=== PATIENT | male | born 1955 | race Caucasian/White ===

== ENCOUNTER 2023-11-17 14:01 | Observation (INO) | payer MEDICARE ==
--- NOTE | 2023-11-17 14:39 | ED ---
Recheck HPI - General Source: patient, RN notes reviewed Mode of arrival: ambulatory Limitations: no limitations <Fariba Hernandez - Last Filed: 11/17/23 14:38> <Jg Quinones - Last Filed: 11/17/23 21:00> - General Chief Complaint: Recheck/Abnormal Lab/Rx Stated Complaint: Abn labs Time Seen by Provider: 11/17/23 14:38 - History of Present Illness Initial Comments: Patient is a 68-year-old male presented to ER with chief complaint of abnormal labs. Patient was sent here by PCP for further evaluation. Patient reports he underwent CABG about a year ago. Patient is endorsing some abdominal pain. Patient denies any fevers, chills, night sweats. Patient has been losing weight but is also on Ozempic. (Fariba Hernandez) This is a 68-year-old male who presents to the emergency department. Patient is a diabetic and had a recent bypass surgery on 30 September. Patient states that he went back on his Ozempic and his liver enzymes were elevated with the last 2 blood draws so his physician wanted to come to the emergency department. Patient denies any shortness of breath or difficulty breathing. Patient denies any chest pain. Patient has any back pain. Patient denies abdominal pain (Jg Quinones) - Related Data Home Medications Medication Instructions Recorded Confirmed Ascorbic Acid [Vitamin C] 1,000 mg PO DAILY 11/17/23 11/17/23 Atorvastatin Calcium [Lipitor] 40 mg PO HS 11/17/23 11/17/23 Cholecalciferol [Vitamin D3 (25 50 mcg PO DAILY 11/17/23 11/17/23 Mcg = 1000 Iu)] Citalopram Hydrobromide [CeleXA] 10 mg PO DAILY 11/17/23 11/17/23 Clopidogrel [Plavix] 75 mg PO DAILY 11/17/23 11/17/23 Docusate [Colace] 100 mg PO DAILY 11/17/23 11/17/23 Fenofibrate Nanocrystallized 145 mg PO HS 11/17/23 11/17/23 [Fenofibrate] Insulin Aspart [NovoLOG Flexpen] See Protocol SQ AC-TID 11/17/23 11/17/23 Insulin Glargine,Hum.rec.anlog 30 units SQ BID 11/17/23 11/17/23 [Lantus Solostar Pen] Multivitamins, Thera [Multivitamin 1 tab PO DAILY 11/17/23 11/17/23 (formulary)] [place]-3/Dha/Epa/Fish Oil [Fish Oil 1 cap PO DAILY 11/17/23 11/17/23 1,000 mg Softgel] Omeprazole [PriLOSEC] 20 mg PO DAILY PRN 11/17/23 11/17/23 Semaglutide [Ozempic] 0.5 mg SQ SA 11/17/23 11/17/23 Sennosides-Docusate Sodium 1 tab PO DAILY 11/17/23 11/17/23 [Senokot-S] Zolpidem [Ambien] 10 mg PO HS PRN 11/17/23 11/17/23 lisinopriL [Zestril] 20 mg PO HS 11/17/23 11/17/23 metFORMIN HCL [Glucophage] 500 mg PO BID 11/17/23 11/17/23 tadalafiL 10 mg PO DAILY PRN 11/17/23 11/17/23 traMADol HCL 50 mg PO Q6H PRN 11/17/23 11/17/23 Allergies Allergy/AdvReac Type Severity Reaction Status Date / Time No Known Allergies Allergy Verified 11/17/23 17:54 Review of Systems ROS Other: All systems not noted in ROS Statement are negative. <Fariba Hernandez - Last Filed: 11/17/23 14:38> ROS Other: All systems not noted in ROS Statement are negative. <Jg Quinones - Last Filed: 11/17/23 21:00> ROS Statement: Those systems with pertinent positive or pertinent negative responses have been documented in the HPI. Past Medical History Past Medical History: Diabetes Mellitus, Hyperlipidemia, Hypertension, Thyroid Disorder Past Surgical History: Coronary Bypass/CABG <Fariba Hernandez - Last Filed: 11/17/23 14:38> General Exam Limitations: no limitations <Fariba Hernandez - Last Filed: 11/17/23 14:38> <Jg Quinones - Last Filed: 11/17/23 21:00> - General Exam Comments Initial Comments: Visual Physical Exam Vital signs reviewed General: Well-appearing, nontoxic, no acute distress. Head: Normocephalic, atraumatic Eyes: PERRLA, EOMI ENT: Airway patent Chest: Nonlabored breathing Skin: No visual rash, jaundice Neuro: Alert and oriented 3 Musculoskeletal: No gross abnormalities (Fariba Hernandez) GENERAL: Patient is well-developed and well-nourished. Patient is nontoxic and well- hydrated and is in no acute distress. ENT: Neck is soft and supple. No significant lymphadenopathy is noted. Oropharynx is clear. Moist mucous membranes. Neck has full range of motion without eliciting any pain. EYES: The sclera were anicteric and conjunctiva were pink and moist. Extraocular movements were intact and pupils were equal round and reactive to light. Eyelids were unremarkable. PULMONARY: Unlabored respirations. Good breath sounds bilaterally. Patient has some diminished breath sounds at right base CARDIOVASCULAR: There is a regular rate and rhythm without any murmurs gallops or rubs. ABDOMEN: Soft and nontender with normal bowel sounds. SKIN: Skin is clear with no lesions or rashes and otherwise unremarkable. NEUROLOGIC: Patient is alert and oriented x3. Cranial nerves II through XII are grossly intact. Motor and sensory are also intact. Normal speech, volume and content. Symmetrical smile. MUSCULOSKELETAL: Normal extremities with adequate strength and full range of motion. LYMPHATICS: No significant lymphadenopathy is noted PSYCHIATRIC: Normal psychiatric evaluation. (Jg Quinones) Course Vital Signs 11/17/23 11/17/23 11/17/23 14:30 15:20 16:00 Temperature 97 F L Pulse Rate 45 L 85 77 Respiratory 16 16 16 Rate Blood Pressure 115/64 137/59 111/65 O2 Sat by Pulse 99 98 96 Oximetry 11/17/23 11/17/23 11/17/23 16:30 17:00 17:30 Temperature Pulse Rate 78 80 82 Respiratory 16 18 16 Rate Blood Pressure 153/78 128/78 135/60 O2 Sat by Pulse 95 95 96 Oximetry 11/17/23 11/17/23 11/17/23 18:00 18:30 19:00 Temperature Pulse Rate 77 78 80 Respiratory 16 17 16 Rate Blood Pressure 143/72 143/74 138/79 O2 Sat by Pulse 97 98 97 Oximetry Medical Decision Making <Fariba Hernandez - Last Filed: 11/17/23 14:38> - Lab Data Result diagrams: 11/17/23 15:32 11/17/23 15:32 <Jg Quinones - Last Filed: 11/17/23 21:00> - Medical Decision Making I performed the quick note portion of the exam. Electronically signed by Fariba Hernandez PA-C (Fariba Hernandez) EKG is interpreted by myself. EKG shows a bigeminy pattern at a rate of 77 bpm [place] is 154 QRS 106 QT interval 277 QTc is 309. Patient is EKG shows no ST segment elevation. Was pt. sent in by a medical professional or institution ([facility]cker, ELECT[employer]IC WARFARE OFFICER, urgent care, hospital, or [place] health care facility...) When possible be specific @ -Patient was sent in by his primary medical care doctor Did you speak to anyone other than the patient for history (EMS, parent, family, police, friend...)? What history was obtained from this source @ -No Did you review nursing and triage notes (agree or disagree)? Why? @ -I reviewed and agree with nursing and triage notes Were old charts reviewed (outside hosp., previous admission, EMS record, old EKG, old radiological studies, urgent care reports/EKG's, [place] health care facility records)? Report findings @ -I reviewed prior charts and prior lab work on this patient Differential Diagnosis (chest pain, altered mental status, abdominal pain women, abdominal pain men, vaginal bleeding, weakness, fever, dyspnea, syncope, headache, dizziness, GI bleed, back pain, seizure, CVA, palpatations, mental health, musculoskeletal)? @ -Differential Abdominal Pain Men: Appendicitis, cholecystitis, diverticulosis, ischemic bowel, pancreatitis, hepatitis, UTI, gastroenteritis, AAA, incarcerated hernia, bowel obstruction, constipation, inflammatory bowel, hepatitis, peptic ulcer disease, splenic infarction, perforated viscus, testicular torsion, this is not meant to be an all-inclusive list EKG interpreted by me (3pts min.). @ -As above X-rays interpreted by me (1pt min.). @ -None done CT interpreted by me (1pt min.). @ -CAT scan showed some inflammation around the gallbladder some gallbladder wal l thickening and some thickening around the pancreatic head U/S interpreted by me (1pt. min.). @ -None done What testing was considered but not performed or refused? (CT, X-rays, U/S, labs)? Why? @ -None What meds were considered but not given or refused? Why? @ -None Did you discuss the management of the patient with other professionals (professionals i.e. , PA, ELECTRONIC WARFARE OFFICER, lab, RT, psych nurse, case management social worker, trauma program manager, teacher, sergeant of officers, correctional case manager)? Give summary @ -I spoke with [facility] hospitalist and they agreed to admit the patient. Was smoking cessation discussed for >3mins.? @ -No Was critical care preformed (if so, how long)? @ -No Were there social determinants of health that impacted care today? How? (Homelessness, low income, unemployed, alcoholism, drug addiction, tra nsportation, low edu. Level, literacy, decrease access to med. care, senior care, rehab)? @ -No Was there de-escalation of care discussed even if they declined (Discuss DNR or withdrawal of care, Hospice)? DNR status @ -No What co-morbidities impacted this encounter? (DM, HTN, Smoking, COPD, CAD, Cancer, CVA, ARF, Chemo, Hep., AIDS, mental health diagnosis, sleep apnea, morbid obesity)? @ -None Was patient admitted / discharged? Hospital course, mention meds given and route, prescriptions, significant lab abnormalities, going to OR and other pertinent info. @ -Patient had a CAT scan that showed inflammation of the gallbladder and around pancreatic head patient's pancreatic and liver enzymes were both elevated. Patient did have gallstones in the gallbladder. Patient's presentation was somewhat consistent with gallstone pancreatitis patient will be placed on antibiotics and admitted the fiberglass autobody repairer will be consulted as well a surgeon. Undiagnosed new problem with uncertain prognosis? @ -No Drug Therapy requiring intensive monitoring for toxicity (Heparin, Nitro, Insulin, Cardizem)? @ -No Were any procedures done? @ -No Diagnosis/symptom? @ -Gallstone pancreatitis Acute, or Chronic, or Acute on Chronic? @ -Acute Uncomplicated (without systemic symptoms) or Complicated (systemic symptoms)? @ -Complicated Side effects of treatment? @ -No Exacerbation, Progression, or Severe Exacerbation? @ -No Poses a threat to life or bodily function? How? (Chest pain, [place], [place], pneumonia, PE, COPD, DKA, ARF, appy, cholecystitis, CVA, Diverticulitis, Homicidal, Suicidal, threat to staff... and all critical care pts) @ -Yes this could lead to sepsis and endorgan dysfunction Diagnosis/symptom? @ -Cholecystitis Acute, or Chronic, or Acute on Chronic? @ -Acute Uncomplicated (without systemic symptoms) or Complicated (systemic symptoms)? @ -Complicated Side effects of treatment? @ -None Exacerbation, Progression, or Severe Exacerbation] @ -No Poses a threat to life or bodily function? @ -No (Jg Quinones) - Lab Data Lab Results 11/17/23 11/17/23 11/17/23 Range/Units 15:32 15:32 15:32 WBC 9.5 (3.8-10.6) k/uL RBC 4.51 (4.30-5.90) m/uL Hgb 12.5 L (13.0-17.5) gm/dL Hct 39.4 (39.0-53.0) % MCV 87.4 (80.0-100.0) fL MCH 27.8 (25.0-35.0) pg MCHC 31.8 (31.0-37.0) g/dL RDW 15.6 H (11.5-15.5) % Plt Count 395 (150-450) k/uL MPV 8.2 Hypochromasia Slight Sodium 137 (137-145) mmol/L Potassium 4.9 (3.5-5.1) mmol/L Chloride 105 (98-107) mmol/L Carbon Dioxide 20 L (22-30) mmol/L Anion Gap 12 mmol/L BUN 29 H (9-20) mg/dL Creatinine 0.85 (0.66-1.25) mg/dL Est GFR (CKD-EPI)AfAm >90 (>60 ml/min/1.73 sqM) Est GFR (CKD-EPI)NonAf >90 (>60 ml/min/1.73 sqM) Glucose 121 H (74-99) mg/dL Plasma Lactic Acid [place] 1.4 (0.7-2.0) mmol/L Calcium 9.9 (8.4-10.2) mg/dL Total Bilirubin 1.6 H (0.2-1.3) mg/dL Conjugated Bilirubin 0.0 (0.0-0.3) mg/dL Unconjugated Bilirubin 0.6 (0.0-1.1) mg/dL Delta Bilirubin 1.0 H (0.0-0.2) mg/dL AST 115 H (17-59) U/L ALT 209 H (4-49) U/L Alkaline Phosphatase 387 H (38-126) U/L Troponin I (0.000-0.034) ng/mL Total Protein 7.6 (6.3-8.2) g/dL Albumin 4.0 (3.5-5.0) g/dL Amylase 208 H (30-110) U/L Lipase 2209 H (23-300) U/L Urine Color Urine Appearance (Clear) Urine pH (5.0-8.0) Ur Specific [place] (1.001-1.035) Urine Protein (Negative) Urine Glucose (UA) (Negative) Urine Ketones (Negative) Urine Blood (Negative) Urine Nitrite (Negative) Urine Bilirubin (Negative) Urine Urobilinogen (<2.0) mg/dL Ur Leukocyte Esterase (Negative) 11/17/23 11/17/23 Range/Units 15:32 17:02 WBC (3.8-10.6) k/uL RBC (4.30-5.90) m/uL Hgb (13.0-17.5) gm/dL Hct (39.0-53.0) % MCV (80.0-100.0) fL MCH (25.0-35.0) pg MCHC (31.0-37.0) g/dL RDW (11.5-15.5) % Plt Count (150-450) k/uL MPV Hypochromasia Sodium (137-145) mmol/L Potassium (3.5-5.1) mmol/L Chloride (98-107) mmol/L Carbon Dioxide (22-30) mmol/L Anion Gap mmol/L BUN (9-20) mg/dL Creatinine (0.66-1.25) mg/dL Est GFR (CKD-EPI)AfAm (>60 ml/min/1.73 sqM) Est GFR (CKD-EPI)NonAf (>60 ml/min/1.73 sqM) Glucose (74-99) mg/dL Plasma Lactic Acid [place] (0.7-2.0) mmol/L Calcium (8.4-10.2) mg/dL Total Bilirubin (0.2-1.3) mg/dL Conjugated Bilirubin (0.0-0.3) mg/dL Unconjugated Bilirubin (0.0-1.1) mg/dL Delta Bilirubin (0.0-0.2) mg/dL AST (17-59) U/L ALT (4-49) U/L Alkaline Phosphatase (38-126) U/L Troponin I 0.014 (0.000-0.034) ng/mL Total Protein (6.3-8.2) g/dL Albumin (3.5-5.0) g/dL Amylase (30-110) U/L Lipase (23-300) U/L Urine Color Yellow Urine Appearance Clear (Clear) Urine pH 5.0 (5.0-8.0) Ur Specific [place] 1.021 (1.001-1.035) Urine Protein Negative (Negative) Urine Glucose (UA) Negative (Negative) Urine Ketones Negative (Negative) Urine Blood Negative (Negative) Urine Nitrite Negative (Negative) Urine Bilirubin Negative (Negative) Urine Urobilinogen <2.0 (<2.0) mg/dL Ur Leukocyte Esterase Negative (Negative) Disposition <Fariba Hernandez - Last Filed: 11/17/23 14:38> Time of Disposition: 20:59 <Jg Quinones - Last Filed: 11/17/23 21:00> Clinical Impression: Gallstone pancreatitis, Cholecystitis Disposition: ADMITTED IP TO THIS HOSP Referrals: Ward Romo DO [Primary Care Provider] - 1-2 days
[2023-11-17 15:48] LABS: HCT 39.4 % (39.0-53.0); HGB 12.5 gm/dL (13.0-17.5); Hypochromasia Slight; MCH 27.8 pg (25.0-35.0); MCHC 31.8 g/dL (31.0-37.0); MCV 87.4 fL (80.0-100.0); Mean Platelet Volume 8.2; Platelet Count 395 k/uL (150-450); RBC 4.51 m/uL (4.30-5.90); RDW 15.6 % (11.5-15.5); WBC 9.5 k/uL (3.8-10.6)
[2023-11-17 15:57] LABS: African American GFR (CKD) >90 (>60 ml/min/1.73 sqM); Amylase 208 U/L (30-110); Carbon Dioxide 20 mmol/L (22-30); Non-African American GFR(CKD) >90 (>60 ml/min/1.73 sqM); Total Protein 7.6 g/dL (6.3-8.2)
[2023-11-17 16:23] LABS: ALT 209 U/L (4-49); AST 115 U/L (17-59); Alkaline Phosphatase 387 U/L (38-126); Anion Gap 12 mmol/L; Bilirubin,Unconjugated 0.6 mg/dL (0.0-1.1); Blood Urea Nitrogen 29 mg/dL (9-20); Calcium 9.9 mg/dL (8.4-10.2); Chloride 105 mmol/L (98-107); Glucose 121 mg/dL (74-99); Potassium 4.9 mmol/L (3.5-5.1); Sodium 137 mmol/L (137-145); Total Bilirubin 1.6 mg/dL (0.2-1.3)
[2023-11-17 16:49] LABS: Lipase 2209 U/L (23-300)
[2023-11-17 18:03] LABS: Appearance,Urine Clear (Clear); Bilirubin,Urine Negative (Negative); Blood,Urine Negative (Negative); Color,Urine Yellow; Glucose,Urine (UA) Negative (Negative); Ketones,Urine Negative (Negative); Leukocyte Esterase,Urine Negative (Negative); Nitrite,Urine Negative (Negative); Protein,Urine Negative (Negative); Specific Gravity,Urine 1.021 (1.001-1.035); Urobilinogen,Urine <2.0 mg/dL (<2.0)
--- NOTE | 2023-11-17 18:52 | CT ---
EXAMINATION TYPE: CT abdomen pelvis w con CT DLP: 1106.9 mGycm, Automated exposure control for dose reduction was used. DATE OF EXAM: 11/17/2023 6:19 PM COMPARISON: None CLINICAL INDICATION:Male, 68 years old with history of jaundice; Jaundice, abnormal labs TECHNIQUE: Axial CT abdomen pelvis w con;Sagittal and coronal reformats were created on a separate w orkstation. Contrast used:100 mL of Isovue 300 with IV Contrast, (none if empty) Oral contrast used: without Oral Contrast (none if empty) FINDINGS: LOWER CHEST: Small left pleural effusion. Streaky atelectasis lung bases. Elevated right diaphragm. S ternotomy wires are present. Mild coronary artery atherosclerosis. Aortic valve leaflet calcification s. ABDOMEN LIVER: Unremarkable GALLBLADDER AND BILE DUCTS: Gallbladder has circumferential wall thickening up to 4 4 mm. There is a hepatis possible gallstone in the cystic duct measures series 201 image 29. PANCREAS: Unremarkable. SPLEEN: Unremarkable. ADRENAL GLANDS: Unremarkable. KIDNEYS AND URETERS: Nonobstructing left 3 mm calculus. No right renal calculus. No evidence for obst ructive uropathy. PELVIS BLADDER: Unremarkable REPRODUCTIVE: Unremarkable. ABDOMEN & PELVIS STOMACH AND BOWEL: No evidence of bowel obstruction. Scattered colonic diverticula. The appendix is n ot definitively visualized. PERITONEUM/RETROPERITONEUM: No evidence of pneumoperitoneum or free fluid. Fat stranding changes seri es 201 image 27 that extends away from the pancreatic head. This is immediately adjacent to the duode num. VASCULATURE: No evidence of aortic aneurysm. MUSCULOSKELETAL: No acute osseous abnormalities LYMPH NODES: Prominent lymph node near the hazy fat stranding described above measuring up to 13 mm j ust anterior to the portal vein series 201 image 31. SOFT TISSUE/ABDOMINAL WALL: Postsurgical changes with hernia repair anchors present. Left fat-contain ing inguinal hernia. IMPRESSION: 1. There is some wall thickening of the gallbladder suggested with possible gallstone visualized ser ies 201 image 29. Correlate for signs and symptoms of acute cholecystitis. 2. Ill-defined hazy soft tissue in the tae hepatis with enlarged lymph node anterior to the portal vein. Hazy soft tissue is near the duodenum and pancreatic head, etiology uncertain. Correlation wit h prior imaging at outside institutions would be of benefit if available. Correlate for peptic ulcer disease. Correlate for signs and symptoms of ascending cholangitis. Malignancy not entirely excluded given the lymph node. 3. Elevated right diaphragm with associated atelectasis. 4. Small left pleural effusion. 5. Coronary artery atherosclerosis.
--- NOTE | 2023-11-17 20:54 | US ---
EXAMINATION TYPE: US gallbladder DATE OF EXAM: 11/17/2023 COMPARISON: CT: Today CLINICAL INDICATION: Male, 68 years old with history of Right upper quadrant abdominal pain; Abnormal labs, GB wall thickening on CT Extremely limited due to bowel gas and body habitus. Pt had just eaten about 30 min ago. TECHNIQUE: Multiple sonographic images of the right upper quadrant are obtained. FINDINGS: EXAM MEASUREMENTS: Liver Length: 14.4 cm Gallbladder Wall: 0.72 cm CBD: Not seen Right Kidney: 12.0 x 5.0 x 7.0 cm Pancreas: Obscured by bowel gas Liver: Left lobe obscured by bowel gas, no obvious masses seen in right lobe. Scanned intercostally Gallbladder: Wall thickening as seen on same day CT. Rodriguez measuring up to 5 mm. Gallstone seen on day CT not well appreciated. Evidence for sonographic Mackay's sign: No CBD: Not seen Right Kidney: wnl IMPRESSION: Mild wall thickening of the gallbladder as seen on same day CT correlate for signs of acute cholecyst itis. Consider correlation with HIDA scan.
[2023-11-17] MEDS: SODIUM CHLORIDE 0.9% 1,000 ML IV ONE (22:43)
[2023-11-17] MEDS: PIPERACILLIN-TAZOBACTAM 3.375 GM in SODIUM CHLORIDE 0.9% 100 ML IVPB STA (22:43)
[2023-11-18 05:35] LABS: Glucose,Whole Blood 168 mg/dL (70-110)
[2023-11-18 07:17] LABS: HCT 33.2 % (39.0-53.0); HGB 10.6 gm/dL (13.0-17.5); Hypochromasia Slight; MCV 87.7 fL (80.0-100.0); Mean Platelet Volume 8.2; Platelet Count 325 k/uL (150-450); RBC 3.79 m/uL (4.30-5.90); RDW 15.6 % (11.5-15.5); WBC 6.3 k/uL (3.8-10.6)
[2023-11-18 07:34] LABS: INR 1.1 (<1.2); Prothrombin Time 11.6 sec (10.0-12.5)
[2023-11-18 07:37] LABS: ALT 142 U/L (4-49); AST 79 U/L (17-59); African American GFR (CKD) >90 (>60 ml/min/1.73 sqM); Albumin 3.1 g/dL (3.5-5.0); Alkaline Phosphatase 277 U/L (38-126); Anion Gap 7 mmol/L; Blood Urea Nitrogen 22 mg/dL (9-20); Calcium 8.9 mg/dL (8.4-10.2); Carbon Dioxide 22 mmol/L (22-30); Chloride 108 mmol/L (98-107); Globulin 3.1 g/dL; Glucose 139 mg/dL (74-99); Non-African American GFR(CKD) >90 (>60 ml/min/1.73 sqM); Potassium 4.3 mmol/L (3.5-5.1); Sodium 137 mmol/L (137-145); Total Bilirubin 1.1 mg/dL (0.2-1.3); Total Protein 6.2 g/dL (6.3-8.2)
[2023-11-18] MEDS: PIPERACILLIN-TAZOBACTAM 3.375 GM in SODIUM CHLORIDE 0.9% 100 ML IVPB SCH (09:07)
[2023-11-18 11:46] LABS: Glucose,Whole Blood 153 mg/dL (70-110)
--- NOTE | 2023-11-18 13:02 | P.CONS ---
History of Present Illness - Reason for Consult Consult date: 11/18/23 Gallstone pancreatitis, cholecystitis Requesting physician: Jg Quinones - Chief Complaint Abnormal labs - History of Present Illness This pleasant 68-year-old male with a history of coronary artery disease status post CABG 09/30/2023 who was sent into the emergency department for further evaluation of elevated LFTs in the outpatient setting. Patient states he has b een having elevated LFTs that his PCP has been following. He has been having back pain for quite some time states basically since his surgery. He denies any abdominal pain, no nausea or vomiting. He is diabetic as well and was started on Ozempic a few months back and then he went back on it after his CABG. Following his CABG his last 2 blood draws at his PCP has had elevated LFTs. He also reports a 30 pound weight loss over the last few months. He does report taking Lipitor but he has been on that for years. He underwent a CT of the abdomen pelvis as well as gallbladder ultrasound. Gastroenterology was consulted for gallstone pancreatitis. He was noted to have elevated LFTs as well as amylase and lipase on admission. Today's labs WBC 6.3 hemoglobin 10.6 hematocrit 33 platelet count 325,000 sodium 137 potassium 4.3 BUN 22 creatinine 0.8 total bilirubin 1.1 AST 79 ALT 142 alkaline phosphatase 277 lipase 2174 Admitting labs WBC 9.5 hemoglobin 12.5 hematocrit 39 platelet count 395,000 sodium 137 potassium 4.9 BUN 29 creatinine 0.8 total bilirubin 1.6 AST 115 ALT 209 alkaline phosphatase 387 amylase 208 lipase 2209 Review of Systems REVIEW OF SYSTEMS: CARDIOPULMONARY: No chest pain or shortness of breath. Gastrointestinal: Burning sensation patient denies any abdominal pain. What he say No nausea or vomiting. No hematemesis, coffee-ground emesis. No rectal bleeding, or melena. GENITOURINARY: No dysuria or hematuria. MUSCULOSKELETAL: Reports normal range of motion. He reports back pain since his surgery. SKIN: No rashes. No jaundice. ENDOCRINE: No chills, fevers. No polydipsia or polyuria. PSYCHIATRIC: Unremarkable. NEUROLOGY: No change in mental status. Denies dizziness, headache. ENT: Vision unremarkable. CONSTITUTIONAL: Reports 30 pound weight loss over the last 3 to 4 months. No fever, chills, night sweats. Past Medical History Past Medical History: Diabetes Mellitus, Hyperlipidemia, Hypertension, Thyroid Disorder History of Any Multi-Drug Resistant Organisms: None Reported Past Surgical History: Coronary Bypass/CABG Smoking Status: Never smoker Medications and Allergies Home Medications Medication Instructions Recorded Confirmed Type Ascorbic Acid [Vitamin C] 1,000 mg PO DAILY 11/17/23 11/17/23 History Atorvastatin Calcium [Lipitor] 40 mg PO HS 11/17/23 11/17/23 History Cholecalciferol [Vitamin D3 (25 50 mcg PO DAILY 11/17/23 11/17/23 History Mcg = 1000 Iu)] Citalopram Hydrobromide [CeleXA] 10 mg PO DAILY 11/17/23 11/17/23 History Clopidogrel [Plavix] 75 mg PO DAILY 11/17/23 11/17/23 History Docusate [Colace] 100 mg PO DAILY 11/17/23 11/17/23 History Fenofibrate Nanocrystallized 145 mg PO HS 11/17/23 11/17/23 History [Fenofibrate] Insulin Aspart [NovoLOG Flexpen] See Protocol SQ AC-TID 11/17/23 11/17/23 Hist ory Insulin Glargine,Hum.rec.anlog 30 units SQ BID 11/17/23 11/17/23 History [Lantus Solostar Pen] Multivitamins, Thera [Multivitamin 1 tab PO DAILY 11/17/23 11/17/23 History (formulary)] [place]-3/Dha/Epa/Fish Oil [Fish Oil 1 cap PO DAILY 11/17/23 11/17/23 History 1,000 mg Softgel] Omeprazole [PriLOSEC] 20 mg PO DAILY PRN 11/17/23 11/17/23 History Semaglutide [Ozempic] 0.5 mg SQ SA 11/17/23 11/17/23 History Sennosides-Docusate Sodium 1 tab PO DAILY 11/17/23 11/17/23 History [Senokot-S] Zolpidem [Ambien] 10 mg PO HS PRN 11/17/23 11/17/23 History lisinopriL [Zestril] 20 mg PO HS 11/17/23 11/17/23 History metFORMIN HCL [Glucophage] 500 mg PO BID 11/17/23 11/17/23 History tadalafiL 10 mg PO DAILY PRN 11/17/23 11/17/23 History traMADol HCL 50 mg PO Q6H PRN 11/17/23 11/17/23 History Allergies Allergy/AdvReac Type Severity Reaction Status Date / Time No Known Allergies Allergy Verified 11/17/23 17:54 Physical Exam Vitals: Vital Signs Temp Pulse Pulse Resp BP BP Pulse Ox 11/18/23 00:50 98.6 F 60 18 101/58 93 L 11/17/23 22:00 84 16 124/79 90 L 11/17/23 21:30 83 18 134/100 93 L 11/17/23 21:00 20 136/72 11/17/23 20:30 86 18 133/55 94 L 11/17/23 20:00 86 138/101 95 11/17/23 19:30 91 131/96 11/17/23 19:00 80 16 138/79 97 11/17/23 18:30 78 17 143/74 98 11/17/23 18:00 77 16 143/72 97 11/17/23 17:30 82 16 135/60 96 11/17/23 17:00 80 18 128/78 95 11/17/23 16:30 78 16 153/78 95 11/17/23 16:00 77 16 111/65 96 11/17/23 15:20 85 16 137/59 98 11/17/23 14:30 97 F L 45 L 16 115/64 99 Intake and Output 11/17/23 11/18/23 11/18/23 22:59 06:59 14:59 Other: # Voids 2 Weight 80.739 kg General appearance: The patient is alert, oriented, appears in no acute distr ess. HET: Head is normocephalic and atraumatic. Conjunctiva pink. Sclera anicteric. Neck: Supple without lymphadenopathy. Trachea midline. Heart: Regular. Lungs: Equal expansion, normal respiratory effort. Abdomen: Soft, nontender, nondistended with bowel sounds. No guarding or rigidity. Skin: No rashes. No jaundice. Extremities: Normal skin color and turgor. No pedal edema. Neurological: No focal deficits. Alert and oriented x3. Results CBC & Chem 7: 11/18/23 06:40 11/18/23 06:40 Labs: Abnormal Lab Results - Last 24 Hours (Table) 11/17/23 11/17/23 11/18/23 Range/Units 15:32 15:32 05:34 Hgb 12.5 L (13.0-17.5) gm/dL RDW 15.6 H (11.5-15.5) % Carbon Dioxide 20 L (22-30) mmol/L BUN 29 H (9-20) mg/dL Glucose 121 H (74-99) mg/dL POC Glucose (mg/dL) 168 H (70-110) mg/dL Total Bilirubin 1.6 H (0.2-1.3) mg/dL Delta Bilirubin 1.0 H (0.0-0.2) mg/dL AST 115 H (17-59) U/L ALT 209 H (4-49) U/L Alkaline Phosphatase 387 H (38-126) U/L Amylase 208 H (30-110) U/L Lipase 2209 H (23-300) U/L Comments: CT abdomen pelvis with contrast reports some wall thickening of the gallbladder suggesting possible gallstone visualized correlate for signs and symptoms of acute cholecystitis. Ill-defined hazy soft tissue in the tae hepatis with enlarged lymph node anterior to the portal vein. Hazy soft tissue near the duodenum and pancreatic head, etiology uncertain. Correlation with prior imaging at outside institutions would be beneficial if available. Correlate for peptic ulcer disease. Correlate for signs and symptoms of ascending cholangitis. Malignancy not entirely excluded given the lymph node. Elevated right diaphragm with associated atelectasis. Small left pleural effusion. Coronary artery arthrosclerosis. Gallbladder ultrasound reports mild wall thickening of the gallbladder as seen on same-day CT correlate for signs of acute cholecystitis. Consider correlation with HIDA scan. CBD not well-seen. Assessment and Plan (1) Pancreatitis Narrative/Plan: 68-year-old male presenting to the emergency department directed by his PCP for elevated liver enzymes. This in a patient who underwent recent CABG on 09/30/2023 hands reported back pain since surgery without any abdominal pain. He states that it is a dull achy discomfort. He is also diabetic and was started on Ozempic this year which was restarted after his CABG which then was noted to have elevated liver enzymes over his last 2 visits with his PCP. He also reports a 30 pound weight loss over the last 3 to 4 months. Denies any previous history of gallbladder problems and no pancreatitis in the past. Possible gallstones seen in the cystic duct but no common bile duct dilation. No other noted gallstones. Unclear etiology may be medication induced may be biliary obstruction however would like to further investigate with MRI of the pancreas with MRCP due to significant weight loss as well. Current Visit: Yes Status: Acute Code(s): K85.90 - ACUTE PANCREATITIS WITHOUT NECROSIS OR INFECTION, UNSP SNOMED Code(s): 13726453 (2) Cholecystitis Current Visit: Yes Status: Acute Code(s): K81.9 - CHOLECYSTITIS, UNSPECIFIED SNOMED Code(s): 33954586 Plan: 1. Continue symptomatic and supportive care 2. Keep n.p.o. for now may have clear liquid diet following MRI 3. MRI pancreas with MRCP ordered 4. Hold Ozempic 5. Avoid hepatotoxic medications 6. Pain medication as needed 7. Antiemetics as needed 8. Agree with IV Zosyn 9. Await pancreas MRI/MRCP results. Patient may need to transfer to tertiary center for higher level of care if there is biliary obstruction 10. Continue with recommendations from general surgery Thank you for allowing us to participate in the care of the patient, the GI service will sign off, gastroenterology will not be available at the hospital this weekend and through next week. If further evaluation by gastroenterology is required the patient will need transfer as per the primary team's discretion. Dr. Ronna Billingsley I agree with the dictator's note, documented as a scribe by Nga Bejarano.
[2023-11-18 13:40] VITALS: BMI 24.8
--- NOTE | 2023-11-18 14:01 | P.GSCN ---
History of Present Illness Consult date: 11/18/23 History of present illness: CHIEF COMPLAINT: Abnormal outpatient labs HISTORY OF PRESENT ILLNESS: This is a 68-year-old male who presented to the ER per his PCPs request due to elevated liver enzymes in the outpatient setting. Patient reports that he has had a 30 pound weight loss in the last 3 to 4 months. He has been on Ozempic in the outpatient setting for about 3 to 4 weeks. And then he did have CABG on 09/30/2023. He is just recently restarted the Ozempic. Patient diet denies any abdominal pain. But he did have an episode of vomiting after eating a big Mac on Tuesday. He does report some discomfort in the right upper quadrant flank area. His liver enzymes are elevated lipase level elevated. CT scan abdomen pelvis shows some wall thickening of the gallbladder suggestive of possible gallstone. Also ill- defined hazy soft tissue in the tae hepatis with enlarged lymph node anterior to the portal vein. Hazy soft tissue is near the duodenum and pancreatic head. Patient has been seen by GI service they have ordered an MRI of the pancreas and MRCP. PAST MEDICAL HISTORY: See below PAST SURGICAL HISTORY: See below MEDICATIONS: See below ALLERGIES: See below SOCIAL HISTORY: No illicit drug use. Denies alcohol use REVIEW OF SYSTEMS: CONSTITUTIONAL: Denies fever or chills. HEENT: Denies blurred vision, vision changes, or eye pain. Denies hemoptysis CARDIOVASCULAR: Denies chest pain or pressure. RESPIRATORY: No shortness of breath. GASTROINTESTINAL: See HPI for pertinent findings HEMATOLOGIC: Denies bleeding disorders. GENITOURINARY: Denies any blood in urine or increased urinary frequency. SKIN: Denies pruitis. Denies rash. PHYSICAL EXAM: VITAL SIGNS: Reviewed GENERAL: Well-developed in no acute distress. HEENT: No sclera icterus. Extraocular movements grossly intact. Moist buccal mucosa. Head is atraumatic, normocephalic. No nasal drainage. ABDOMEN: Soft. Nondistended. Mild discomfort with palpation right upper quadrant NEUROLOGIC: Alert and oriented. Cranial nerves II through XII grossly intact. LABORATORY DATA: WBC 6.3 Hgb 10.6 platelets 325 Sodium 137 potassium 4.3 creatinine 0.80 Total bilirubin 1.6 down to 1.1 AST 115 down to 79 ALT 209 down to 142 alk phos 387 down to 277 Lipase 2209 down to 2174 Urinalysis negative IMAGING: CT scan abdomen pelvis some wall thickening of the gallbladder suggested with possible gallstone. Ill-defined hazy soft tissue in the tae hepatis with enlarged lymph node anterior to the portal vein. Hazy soft tissue is near the duodenum and pancreatic head. Correlation with prior imaging. Correlate for peptic ulcer disease. Correlate for signs symptoms cholangitis. Malignancy not entirely excluded. Elevated right diaphragm with associated atelectasis. Small left pleural effusion. Coronary artery atherosclerosis. Gallbladder ultrasound mild wall thickening of the gallbladder ASSESSMENT: 1. Gallstone pancreatitis 2. Cholecystitis 3. Possible choledocholithiasis PLAN: -Advance diet to clear liquids. MRCP cannot be completed until tomorrow -N.p.o. after midnight for MRCP -Continue antibiotics -Continue IV fluids -Continue supportive care -Hold Plavix for now -Further recommendations forthcoming per surgeon Physician Wound/Ostomy Nurse note has been reviewed by physician. Signing provider agrees with the documented findings, assessment, and plan of care. I have personally seen and examined the patient, reviewed the SECURITY SYSTEMS TECHNICIAN /PAs history, exam and MDM and agree with the assessment and plan as written. Based on total visit time, I have performed more than 50% of the visit. As above: Patient appears quite comfortable. Not having significant pain. Diagnostic studies discussed with patient and family. Certainly concerning for possible neoplastic process. Await MRCP. Past Medical History Past Medical History: Diabetes Mellitus, Hyperlipidemia, Hypertension, Thyroid Disorder History of Any Multi-Drug Resistant Organisms: None Reported Past Surgical History: Coronary Bypass/CABG Smoking Status: Never smoker Medications and Allergies Home Medications Medication Instructions Recorded Confirmed Type Ascorbic Acid [Vitamin C] 1,000 mg PO DAILY 11/17/23 11/17/23 History Atorvastatin Calcium [Lipitor] 40 mg PO HS 11/17/23 11/17/23 History Cholecalciferol [Vitamin D3 (25 50 mcg PO DAILY 11/17/23 11/17/23 History Mcg = 1000 Iu)] Citalopram Hydrobromide [CeleXA] 10 mg PO DAILY 11/17/23 11/17/23 History Clopidogrel [Plavix] 75 mg PO DAILY 11/17/23 11/17/23 History Docusate [Colace] 100 mg PO DAILY 11/17/23 11/17/23 History Fenofibrate Nanocrystallized 145 mg PO HS 11/17/23 11/17/23 History [Fenofibrate] Insulin Aspart [NovoLOG Flexpen] See Protocol SQ AC-TID 11/17/23 11/17/23 History Insulin Glargine,Hum.rec.anlog 30 units SQ BID 11/17/23 11/17/23 History [Lantus Solostar Pen] Multivitamins, Thera [Multivitamin 1 tab PO DAILY 11/17/23 11/17/23 History (formulary)] [place]-3/Dha/Epa/Fish Oil [Fish Oil 1 cap PO DAILY 11/17/23 11/17/23 History 1,000 mg Softgel] Omeprazole [PriLOSEC] 20 mg PO DAILY PRN 11/17/23 11/17/23 History Semaglutide [Ozempic] 0.5 mg SQ SA 11/17/23 11/17/23 History Sennosides-Docusate Sodium 1 tab PO DAILY 11/17/23 11/17/23 History [Senokot-S] Zolpidem [Ambien] 10 mg PO HS PRN 11/17/23 11/17/23 History lisinopriL [Zestril] 20 mg PO HS 11/17/23 11/17/23 History metFORMIN HCL [Glucophage] 500 mg PO BID 11/17/23 11/17/23 History tadalafiL 10 mg PO DAILY PRN 11/17/23 11/17/23 History traMADol HCL 50 mg PO Q6H PRN 11/17/23 11/17/23 History Allergies Allergy/AdvReac Type Severity Reaction Status Date / Time No Known Allergies Allergy Verified 11/17/23 17:54 Surgical - Exam Vital Signs Temp Pulse Resp BP Pulse Ox 97 F L 45 L 16 115/64 99 11/17/23 14:30 11/17/23 14:30 11/17/23 14:30 11/17/23 14:30 11/17/23 14:30 Results - Labs 11/18/23 06:40 11/18/23 06:40 Abnormal Lab Results - Last 24 Hours (Table) 11/17/23 11/17/23 11/18/23 Range/Units 15:32 15:32 05:34 RBC (4.30-5.90) m/uL Hgb 12.5 L (13.0-17.5) gm/dL Hct (39.0-53.0) % RDW 15.6 H (11.5-15.5) % Chloride (98-107) mmol/L Carbon Dioxide 20 L (22-30) mmol/L BUN 29 H (9-20) mg/dL Glucose 121 H (74-99) mg/dL POC Glucose (mg/dL) 168 H (70-110) mg/dL Total Bilirubin 1.6 H (0.2-1.3) mg/dL Delta Bilirubin 1.0 H (0.0-0.2) mg/dL AST 115 H (17-59) U/L ALT 209 H (4-49) U/L Alkaline Phosphatase 387 H (38-126) U/L Total Protein (6.3-8.2) g/dL Albumin (3.5-5.0) g/dL Amylase 208 H (30-110) U/L Lipase 2209 H (23-300) U/L 11/18/23 11/18/23 Range/Units 06:40 06:40 RBC 3.79 L (4.30-5.90) m/uL Hgb 10.6 L (13.0-17.5) gm/dL Hct 33.2 L (39.0-53.0) % RDW 15.6 H (11.5-15.5) % Chloride 108 H (98-107) mmol/L Carbon Dioxide (22-30) mmol/L BUN 22 H (9-20) mg/dL Glucose 139 H (74-99) mg/dL POC Glucose (mg/dL) (70-110) mg/dL Total Bilirubin (0.2-1.3) mg/dL Delta Bilirubin (0.0-0.2) mg/dL AST 79 H (17-59) U/L ALT 142 H (4-49) U/L Alkaline Phosphatase 277 H (38-126) U/L Total Protein 6.2 L (6.3-8.2) g/dL Albumin 3.1 L (3.5-5.0) g/dL Amylase (30-110) U/L Lipase (23-300) U/L Diabetes panel 11/17/23 11/18/23 Range/Units 15:32 06:40 Sodium 137 137 (137-145) mmol/L Potassium 4.9 4.3 (3.5-5.1) mmol/L Chloride 105 108 H (98-107) mmol/L Carbon Dioxide 20 L 22 (22-30) mmol/L BUN 29 H 22 H (9-20) mg/dL Creatinine 0.85 0.80 (0.66-1.25) mg/dL Glucose 121 H 139 H (74-99) mg/dL Calcium 9.9 8.9 (8.4-10.2) mg/dL AST 115 H 79 H (17-59) U/L ALT 209 H 142 H (4-49) U/L Alkaline Phosphatase 387 H 277 H (38-126) U/L Total Protein 7.6 6.2 L (6.3-8.2) g/dL Albumin 4.0 3.1 L (3.5-5.0) g/dL Calcium panel 11/17/23 11/18/23 Range/Units 15:32 06:40 Calcium 9.9 8.9 (8.4-10.2) mg/dL Albumin 4.0 3.1 L (3.5-5.0) g/dL Pituitary panel 11/17/23 11/18/23 Range/Units 15:32 06:40 Sodium 137 137 (137-145) mmol/L Potassium 4.9 4.3 (3.5-5.1) mmol/L Chloride 105 108 H (98-107) mmol/L Carbon Dioxide 20 L 22 (22-30) mmol/L BUN 29 H 22 H (9-20) mg/dL Creatinine 0.85 0.80 (0.66-1.25) mg/dL Glucose 121 H 139 H (74-99) mg/dL Calcium 9.9 8.9 (8.4-10.2) mg/dL Adrenal panel 11/17/23 11/18/23 Range/Units 15:32 06:40 Sodium 137 137 (137-145) mmol/L Potassium 4.9 4.3 (3.5-5.1) mmol/L Chloride 105 108 H (98-107) mmol/L Carbon Dioxide 20 L 22 (22-30) mmol/L BUN 29 H 22 H (9-20) mg/dL Creatinine 0.85 0.80 (0.66-1.25) mg/dL Glucose 121 H 139 H (74-99) mg/dL Calcium 9.9 8.9 (8.4-10.2) mg/dL Total Bilirubin 1.6 H 1.1 (0.2-1.3) mg/dL AST 115 H 79 H (17-59) U/L ALT 209 H 142 H (4-49) U/L Alkaline Phosphatase 387 H 277 H (38-126) U/L Total Protein 7.6 6.2 L (6.3-8.2) g/dL Albumin 4.0 3.1 L (3.5-5.0) g/dL
[2023-11-18] MEDS: SODIUM CHLORIDE 0.9% 1,000 ML IV SCH (16:14)
[2023-11-18 16:36] LABS: Glucose,Whole Blood 110 mg/dL (70-110)
[2023-11-18 19:51] LABS: Glucose,Whole Blood 155 mg/dL (70-110)
[2023-11-18] MEDS: lisinopriL 20 MG TAB PO SCH (21:52)
[2023-11-19 05:36] LABS: Glucose,Whole Blood 113 mg/dL (70-110)
[2023-11-19] MEDS: CITALOPRAM HYDROBROMIDE 10 MG TAB PO SCH (08:43)
--- NOTE | 2023-11-19 13:14 | MR ---
EXAMINATION TYPE: MR pancreas / mrcp wo/w con DATE OF EXAM: 11/19/2023 COMPARISON: CT November 17, 2023 HISTORY: Transaminases, weight loss CONTRAST: Standard multiplanar, multisequence MRI departmental protocol images were obtained without contrast a nd with 8 mL intravenous Gadobutrol gadolinium contrast. FINDINGS: The gallbladder is free of cholelithiasis. Gallbladder wall is mildly thickened at 5 mm. Gallbladder measures 7.3 cm in greatest dimension. Trace fluid surrounds the gallbladder. Common bile duct measur es 5 mm. No evidence for choledocholithiasis. The liver is homogeneous without evidence of space-occupying lesion. Pancreas is homogeneous and evidence for a solid or cystic mass. Pancreatic duct is of normal caliber . No peripancreatic fluid collection seen. Spleen is of normal caliber. Left-sided pleural effusion noted. Kidneys and adrenal glands are unrema rkable. Retroperitoneum is within normal limits. IMPRESSION: 1. Mild gallbladder wall thickening without evidence for cholelithiasis or choledocholithiasis. Trace fluid surrounds the gallbladder. Common bile duct is of normal caliber. The distinct abnormality of the pancreas.
[2023-11-19] MEDS: METOPROLOL SUCCINATE (ER) 50 MG TAB.ER.24H PO SCH (15:10)
[2023-11-19 15:22] LABS: ALT 122 U/L (4-49); AST 78 U/L (17-59); African American GFR (CKD) >90 (>60 ml/min/1.73 sqM); Albumin/Globulin Ratio 1.1; Alkaline Phosphatase 312 U/L (38-126); Anion Gap 12 mmol/L; Bilirubin,Unconjugated 0.5 mg/dL (0.0-1.1); Blood Urea Nitrogen 13 mg/dL (9-20); Calcium 9.3 mg/dL (8.4-10.2); Carbon Dioxide 22 mmol/L (22-30); Chloride 103 mmol/L (98-107); Globulin 3.6 g/dL; Glucose 188 mg/dL (74-99); Non-African American GFR(CKD) >90 (>60 ml/min/1.73 sqM); Sodium 137 mmol/L (137-145); Total Bilirubin 1.4 mg/dL (0.2-1.3); Total Protein 7.6 g/dL (6.3-8.2)
--- NOTE | 2023-11-19 16:18 | P.PN ---
Subjective Progress Note Date: 11/19/23 DANIKAEON. No N/V. No F/C. NO SOB or CP. Ambulatory and voiding. Admits to flatus, no BM. Awaiting MRCP Objective - Vital Signs Vital signs: Vital Signs Temp 98.7 F 11/19/23 13:43 Pulse 47 L 11/19/23 13:43 Resp 18 11/19/23 13:43 BP 124/76 11/19/23 13:43 Pulse Ox 96 11/19/23 13:43 FiO2 Intake & Output 11/18/23 11/19/23 11/19/23 18:59 06:59 18:59 Weight 80.739 kg Other: Voiding Method Toilet Toilet # Voids 3 2 - Exam Gen: AxO, NAD Pulm: non-labored respirations Abd: soft, non-tender, non-distended. No guarding/rebound/rigidity Extrem: no edema seen - Labs CBC & Chem 7: 11/18/23 06:40 11/19/23 14:42 Labs: Abnormal Lab Results - Last 24 Hours (Table) 11/18/23 11/18/23 11/19/23 Range/Units 06:40 19:50 05:35 Glucose (74-99) mg/dL POC Glucose (mg/dL) 155 H 113 H (70-110) mg/dL Total Bilirubin (0.2-1.3) mg/dL AST (17-59) U/L ALT (4-49) U/L Alkaline Phosphatase (38-126) U/L CA 19-9 Antigen 96.9 H (0.0-34.9) U/mL 11/19/23 Range/Units 14:42 Glucose 188 H (74-99) mg/dL POC Glucose (mg/dL) (70-110) mg/dL Total Bilirubin 1.4 H (0.2-1.3) mg/dL AST 78 H (17-59) U/L ALT 122 H (4-49) U/L Alkaline Phosphatase 312 H (38-126) U/L CA 19-9 Antigen (0.0-34.9) U/mL Assessment and Plan Assessment: Patient is a 68 year old male who presents with RUQ pain and lab values concerning for choledocholithiasis Plan: -NPO for MRCP -IV abx -IVF -PRN pain and nausea control -DVT/GI PPx -Further recs pending MRCP if positive for choledocholithiasis will need transfer for advanced GI and ERCP Solitario Khan MD General Surgery
[2023-11-19 16:48] LABS: Glucose,Whole Blood 141 mg/dL (70-110)
--- NOTE | 2023-11-19 16:55 | P.CRDCN ---
History of Present Illness Consult date: 11/19/23 Consult reason: other (bradycardia, PVCs) Chief complaint: SOB, bradycardia History of present illness: History of present illness: Patient is a pleasant 68-year-old male with significant past medical history of coronary artery disease status post CABG 09/30/2023, diabetes, hypertension, hyperlipidemia, kidney stones who presents for abnormal labs. He does follow with Dr. Spencer cardiology. He states that he has been on Ozempic and the dose was increased after his surgery. He had lab work done that showed elevated liver and pancreas labs. He does report having significant weight loss and is on sure if this is from his surgery or Ozempic. He is not currently on his home metoprolol. Labs reviewed: Hemoglobin 10.6, creatinine 0.8, AST 79, ALT 142, lipase 2174. EKG shows frequent PVCs. Surgery is planning for possible MRCP and his Plavix is currently being held. He does report having intermittent shortness of breath. He denies any chest pain or pressure. Denies dizziness, syncope. REVIEW OF SYSTEMS: No fever or chills. No cough or expectoration. No diaphoresis. Patient denies headache, dizziness, blurred vision, double vision. Patient denies any stomach discomfort. No nausea, vomiting. No hematochezia. No hematemesis. Denies any black stools or blood in his stools. Denies dysuria or hematuria. No muscle weakness or numbness. No chest pain or pressure. Reports decreased appitite, SOB. PHYSICAL EXAMINATION: This is a 68-year-old male in no apparent distress at the time of my examination. HEENT: Head is atraumatic, normocephalic. Pupils are equal, round. Sclerae anicteric. Conjunctivae are clear. Mucous membranes of the mouth are moist. Neck is supple. There is no jugular venous distention. No carotid bruit is heard. CHEST EXAMINATION: Lungs are clear to auscultation. No chest wall tenderness is noted on palpation or with deep breathing. HEART EXAMINATION: Heart regular rate and rhythm. S1, S2 heard. No murmurs, gallops or rub. ABDOMEN: Soft, nontender. Bowel sounds are heard. EXTREMITIES: 2+ peripheral pulses with no evidence of peripheral edema and no calf tenderness noted. NEUROLOGIC EXAMINATION: Patient is awake, alert and oriented x3. IMPRESSION AND PLAN: CAD s/p CABG 09/30/2023 Diabetes type 2 Hypertension Hyperlipidemia Elevated liver enzymes PLAN: Okay to hold Plavix for upcoming procedure. He would be cleared for surgery from a cardiology standpoint. Resume home medications including metoprolol 50 mg, hold if telemetry shows heart rate less than 60. We will follow. I am dictating on behalf of Dr. Aaron Clayton's history/physical and assessm ent/plan. Past Medical History Past Medical History: Diabetes Mellitus, Hyperlipidemia, Hypertension, Thyroid Disorder History of Any Multi-Drug Resistant Organisms: None Reported Past Surgical History: Coronary Bypass/CABG Smoking Status: Never smoker Medications and Allergies Home Medications Medication Instructions Recorded Confirmed Type Ascorbic Acid [Vitamin C] 1,000 mg PO DAILY 11/17/23 11/17/23 History Atorvastatin Calcium [Lipitor] 40 mg PO HS 11/17/23 11/17/23 History Cholecalciferol [Vitamin D3 (25 50 mcg PO DAILY 11/17/23 11/17/23 History Mcg = 1000 Iu)] Citalopram Hydrobromide [CeleXA] 10 mg PO DAILY 11/17/23 11/17/23 History Clopidogrel [Plavix] 75 mg PO DAILY 11/17/23 11/17/23 History Docusate [Colace] 100 mg PO DAILY 11/17/23 11/17/23 History Fenofibrate Nanocrystallized 145 mg PO HS 11/17/23 11/17/23 History [Fenofibrate] Insulin Aspart [NovoLOG Flexpen] See Protocol SQ AC-TID 11/17/23 11/17/23 History Insulin Glargine,Hum.rec.anlog 30 units SQ BID 11/17/23 11/17/23 History [Lantus Solostar Pen] Multivitamins, Thera [Multivitamin 1 tab PO DAILY 11/17/23 11/17/23 History (formulary)] [place]-3/Dha/Epa/Fish Oil [Fish Oil 1 cap PO DAILY 11/17/23 11/17/23 History 1,000 mg Softgel] Omeprazole [PriLOSEC] 20 mg PO DAILY PRN 11/17/23 11/17/23 History Semaglutide [Ozempic] 0.5 mg SQ SA 11/17/23 11/17/23 History Sennosides-Docusate Sodium 1 tab PO DAILY 11/17/23 11/17/23 History [Senokot-S] Zolpidem [Ambien] 10 mg PO HS PRN 11/17/23 11/17/23 History lisinopriL [Zestril] 20 mg PO HS 11/17/23 11/17/23 History metFORMIN HCL [Glucophage] 500 mg PO BID 11/17/23 11/17/23 History tadalafiL 10 mg PO DAILY PRN 11/17/23 11/17/23 History traMADol HCL 50 mg PO Q6H PRN 11/17/23 11/17/23 History Allergies Allergy/AdvReac Type Severity Reaction Status Date / Time No Known Allergies Allergy Verified 11/17/23 17:54 Physical Exam Vitals: Vital Signs Temp Pulse Resp BP Pulse Ox 11/19/23 06:57 98.4 F 43 L 18 112/66 95 11/19/23 00:50 98.2 F 47 L 18 136/67 94 L 11/18/23 19:00 98.5 F 41 L 19 127/60 95 11/18/23 14:08 98.2 F 40 L 19 111/53 93 L Intake and Output 11/18/23 11/19/23 11/19/23 22:59 06:59 14:59 Other: Voiding Method Toilet Toilet # Voids 3 2 Results 11/18/23 06:40 11/19/23 14:42 Current Medications Generic Name Dose Route Start Last Admin Trade Name Freq PRN Reason Stop Dose Admin Citalopram Hydrobromide 10 mg 11/19/23 09:00 11/19/23 08:43 Citalopram Hydrobromide 10 Mg Tab PO 10 mg DAILY DIDI Administration Piperacillin Sod/Tazobactam 100 mls @ 25 mls/hr 11/18/23 08:00 11/19/23 09:26 Sod 3.375 gm/ Sodium Chloride IVPB 25 mls/hr Q8HR DIDI Administration Protocol Sodium Chloride 1,000 mls @ 100 mls/hr 11/18/23 14:00 11/19/23 09:26 Saline 0.9% IV 100 mls/hr .Q10H DDII Administration Lisinopril 20 mg 11/18/23 21:00 11/18/23 21:52 Lisinopril 20 Mg Tab PO 20 mg HS DIDI Administration Intake and Output 11/18/23 11/19/23 11/19/23 22:59 06:59 14:59 Other: Voiding Method Toilet Toilet # Voids 3 2 11/18/23 06:40 11/18/23 06:40
[2023-11-19] MEDS: ACETAMINOPHEN TAB 325 MG TAB PO PRN (18:34)
--- NOTE | 2023-11-19 19:40 | P.HPIM ---
History of Present Illness H&P Date: 11/18/23 Chief Complaint: Elevated liver enzymes 68-year-old male with a history of coronary artery disease status post CABG 09/30/2023 who was sent into the emergency department for further evaluation of elevated LFTs in the outpatient setting. Patient states he has been having patricio vated LFTs that his PCP has been following. He has been having back pain for quite some time states basically since his surgery. He denies any abdominal pain, no nausea or vomiting. He is diabetic as well and was started on Ozempic a few months back and then he went back on it after his CABG. Following his CABG his last 2 blood draws at his PCP has had elevated LFTs. He also reports a 30 pound weight loss over the last few months. He does report taking Lipitor but he has been on that for years. He underwent a CT of the abdomen pelvis as well as gallbladder ultrasound. Gastroenterology was consulted for gallstone pancreatitis. He was noted to have elevated LFTs as well as amylase and lipase on admission. Today's labs WBC 6.3 hemoglobin 10.6 hematocrit 33 platelet count 325,000 sodium 137 potassium 4.3 BUN 22 creatinine 0.8 total bilirubin 1.1 AST 79 ALT 142 alkaline phosphatase 277 lipase 2174 Admitting labs WBC 9.5 hemoglobin 12.5 hematocrit 39 platelet count 395,000 sodium 137 potassium 4.9 BUN 29 creatinine 0.8 total bilirubin 1.6 AST 115 ALT 209 alkaline phosphatase 387 amylase 208 lipase 2209 Review of Systems REVIEW OF SYSTEMS: CONSTITUTIONAL: No fever, no malaise, no fatigue. HEENT: No recent visual problems or hearing problems. Denied any sore throat. CARDIOVASCULAR: No chest pain, orthopnea, PND, no palpitations, no syncope. PULMONARY: No shortness of breath, no cough, no hemoptysis. GASTROINTESTINAL: No diarrhea, no nausea, no vomiting, no abdominal pain. NEUROLOGICAL: No headaches, no weakness, no numbness. HEMATOLOGICAL: Denies any bleeding or petechiae. GENITOURINARY: Denies any burning micturition, frequency, or urgency. MUSCULOSKELETAL/RHEUMATOLOGICAL: Denies any joint pain, swelling, or any muscle pain. ENDOCRINE: Denies any polyuria or polydipsia. The rest of the 14-point review of systems is negative. Past Medical History Past Medical History: Diabetes Mellitus, Hyperlipidemia, Hypertension, Thyroid Disorder History of Any Multi-Drug Resistant Organisms: None Reported Past Surgical History: Coronary Bypass/CABG Smoking Status: Never smoker Medications and Allergies Home Medications Medication Instructions Recorded Confirmed Type Ascorbic Acid [Vitamin C] 1,000 mg PO DAILY 11/17/23 11/17/23 History Atorvastatin Calcium [Lipitor] 40 mg PO HS 11/17/23 11/17/23 History Cholecalciferol [Vitamin D3 (25 50 mcg PO DAILY 11/17/23 11/17/23 History Mcg = 1000 Iu)] Citalopram Hydrobromide [CeleXA] 10 mg PO DAILY 11/17/23 11/17/23 History Clopidogrel [Plavix] 75 mg PO DAILY 11/17/23 11/17/23 History Docusate [Colace] 100 mg PO DAILY 11/17/23 11/17/23 History Fenofibrate Nanocrystallized 145 mg PO HS 11/17/23 11/17/23 History [Fenofibrate] Insulin Aspart [NovoLOG Flexpen] See Protocol SQ AC-TID 11/17/23 11/17/23 History Insulin Glargine,Hum.rec.anlog 30 units SQ BID 11/17/23 11/17/23 History [Lantus Solostar Pen] Multivitamins, Thera [Multivitamin 1 tab PO DAILY 11/17/23 11/17/23 History (formulary)] [place]-3/Dha/Epa/Fish Oil [Fish Oil 1 cap PO DAILY 11/17/23 11/17/23 History 1,000 mg Softgel] Omeprazole [PriLOSEC] 20 mg PO DAILY PRN 11/17/23 11/17/23 History Semaglutide [Ozempic] 0.5 mg SQ SA 11/17/23 11/17/23 History Sennosides-Docusate Sodium 1 tab PO DAILY 11/17/23 11/17/23 History [Senokot-S] Zolpidem [Ambien] 10 mg PO HS PRN 11/17/23 11/17/23 History lisinopriL [Zestril] 20 mg PO HS 11/17/23 11/17/23 History metFORMIN HCL [Glucophage] 500 mg PO BID 11/17/23 11/17/23 History tadalafiL 10 mg PO DAILY PRN 11/17/23 11/17/23 History traMADol HCL 50 mg PO Q6H PRN 11/17/23 11/17/23 History Allergies Allergy/AdvReac Type Severity Reaction Status Date / Time No Known Allergies Allergy Verified 11/17/23 17:54 Physical Exam Vitals: Vital Signs Temp Pulse Pulse Resp BP BP Pulse Ox 11/18/23 07:05 98.6 F 40 L 18 110/57 94 L 11/18/23 00:50 98.6 F 60 18 101/58 93 L 11/17/23 22:00 84 16 124/79 90 L 11/17/23 21:30 83 18 134/100 93 L 11/17/23 21:00 20 136/72 11/17/23 20:30 86 18 133/55 94 L 11/17/23 20:00 86 138/101 95 11/17/23 19:30 91 131/96 11/17/23 19:00 80 16 138/79 97 11/17/23 18:30 78 17 143/74 98 11/17/23 18:00 77 16 143/72 97 11/17/23 17:30 82 16 135/60 96 11/17/23 17:00 80 18 128/78 95 11/17/23 16:30 78 16 153/78 95 11/17/23 16:00 77 16 111/65 96 11/17/23 15:20 85 16 137/59 98 11/17/23 14:30 97 F L 45 L 16 115/64 99 Intake and Output 11/17/23 11/18/23 11/18/23 22:59 06:59 14:59 Other: # Voids 2 Weight 80.739 kg General appearance: The patient is alert, oriented, appears in no acute distress. HET: Head is normocephalic and atraumatic. Conjunctiva pink. Sclera anicteric. Neck: Supple without lymphadenopathy. Trachea midline. Heart: Regular. Lungs: Equal expansion, normal respiratory effort. Abdomen: Soft, nontender, nondistended with bowel sounds. No guarding or rigidity. Skin: No rashes. No jaundice. Extremities: Normal skin color and turgor. No pedal edema. Neurological: No focal deficits. Alert and oriented x3. Results CBC & Chem 7: 11/18/23 06:40 11/19/23 14:42 Labs: Abnormal Lab Results - Last 24 Hours (Table) 11/17/23 11/17/23 11/18/23 Range/Units 15:32 15:32 05:34 RBC (4.30-5.90) m/uL Hgb 12.5 L (13.0-17.5) gm/dL Hct (39.0-53.0) % RDW 15.6 H (11.5-15.5) % Chloride (98-107) mmol/L Carbon Dioxide 20 L (22-30) mmol/L BUN 29 H (9-20) mg/dL Glucose 121 H (74-99) mg/dL POC Glucose (mg/dL) 168 H (70-110) mg/dL Total Bilirubin 1.6 H (0.2-1.3) mg/dL Delta Bilirubin 1.0 H (0.0-0.2) mg/dL AST 115 H (17-59) U/L ALT 209 H (4-49) U/L Alkaline Phosphatase 387 H (38-126) U/L Total Protein (6.3-8.2) g/dL Albumin (3.5-5.0) g/dL Amylase 208 H (30-110) U/L Lipase 2209 H (23-300) U/L 11/18/23 11/18/23 11/18/23 Range/Units 06:40 06:40 06:40 RBC 3.79 L (4.30-5.90) m/uL Hgb 10.6 L (13.0-17.5) gm/dL Hct 33.2 L (39.0-53.0) % RDW 15.6 H (11.5-15.5) % Chloride 108 H (98-107) mmol/L Carbon Dioxide (22-30) mmol/L BUN 22 H (9-20) mg/dL Glucose 139 H (74-99) mg/dL POC Glucose (mg/dL) (70-110) mg/dL Total Bilirubin (0.2-1.3) mg/dL Delta Bilirubin (0.0-0.2) mg/dL AST 79 H (17-59) U/L ALT 142 H (4-49) U/L Alkaline Phosphatase 277 H (38-126) U/L Total Protein 6.2 L (6.3-8.2) g/dL Albumin 3.1 L (3.5-5.0) g/dL Amylase (30-110) U/L Lipase 2174 H (23-300) U/L 11/18/23 Range/Units 11:45 RBC (4.30-5.90) m/uL Hgb (13.0-17.5) gm/dL Hct (39.0-53.0) % RDW (11.5-15.5) % Chloride (98-107) mmol/L Carbon Dioxide (22-30) mmol/L BUN (9-20) mg/dL Glucose (74-99) mg/dL POC Glucose (mg/dL) 153 H (70-110) mg/dL Total Bilirubin (0.2-1.3) mg/dL Delta Bilirubin (0.0-0.2) mg/dL AST (17-59) U/L ALT (4-49) U/L Alkaline Phosphatase (38-126) U/L Total Protein (6.3-8.2) g/dL Albumin (3.5-5.0) g/dL Amylase (30-110) U/L Lipase (23-300) U/L Thrombosis Risk Factor Assmnt - Choose All That Apply Any of the Below Risk Factors Present?: Yes Each Risk Factor Represents 2 Points: Age 61-74 years Each Risk Factor Represents 5 Points: Major surgery lasting over 3 hours Thrombosis Risk Factor Assessment Total Risk Factor Score: 7 Thrombosis Risk Factor Assessment Level: High Risk Assessment and Plan Assessment: 1. Acute pancreatitis -Lipase was elevated at 2209; patient does take Ozempic which is placed on hold -- Patient has been made n.p.o.; has been placed on IV fluid hydration -- Symptomatic and supportive care with pain medications and antiemetics as needed -- MRCP is ordered 2. Elevated liver enzymes/jaundice -CT of the abdomen reveals ill-defined hazy soft tissue in tae hepatis with enlarged lymph nodes anterior to portal vein -He is the soft tissue near the duodenum and pancreatic head of uncertain etiology -- MRCP is ordered and pending; patient recommended transfer to tertiary care center if biliary obstruction is seen on MRCP -Avoid hepatotoxic medications 3. Possible acute cholecystitis -CT of the abdomen reveals wall thickening of the gallbladder suggesting possible gallstone; ill-defined hazy soft tissue and tae hepatis with enlarged lymph nodes anterior to portal vein -Patient is placed on IV Zosyn -- General surgery is consulted 4. Hypertension; lisinopril 20 mg nightly 5. Hyperlipidemia; Lipitor 40 mg p.o. nightly 6. Diabetes mellitus with long-term insulin use; will monitor Accu-Cheks before every meal and at bedtime with insulin sliding scale 7. Coronary artery disease; patient is status post CABG on 09/30/2023 DVT prophylaxis; SCDs CODE STATUS; full code
--- NOTE | 2023-11-19 19:41 | P.PN ---
Subjective Progress Note Date: 11/19/23 68-year-old male with a history of coronary artery disease status post CABG 09/30/2023 who was sent into the emergency department for further evaluation of elevated LFTs in the outpatient setting. Patient states he has been having elevated LFTs that his PCP has been following. He has been having back pain for quite some time states basically since his surgery. He denies any abdominal pain, no nausea or vomiting. He is diabetic as well and was started on Ozempic a few months back and then he went back on it after his CABG. Following his CABG his last 2 blood draws at his PCP has had elevated LFTs. He also reports a 30 pound weight loss over the last few months. He does report taking Lipitor but he has been on that for years. He underwent a CT of the abdomen pelvis as well as gallbladder ultrasound. Gastroenterology was consulted for gallstone pancreatitis. He was noted to have elevated LFTs as well as amylase and lipase on admission. Today's labs WBC 6.3 hemoglobin 10.6 hematocrit 33 platelet count 325,000 sodium 137 potassium 4.3 BUN 22 creatinine 0.8 total bilirubin 1.1 AST 79 ALT 142 alkaline phosphatase 277 lipase 2174 Admitting labs WBC 9.5 hemoglobin 12.5 hematocrit 39 platelet count 395,000 sodium 137 potassium 4.9 BUN 29 creatinine 0.8 total bilirubin 1.6 AST 115 ALT 209 alkaline phosphatase 387 amylase 208 lipase 2209 Objective - Vital Signs Vital signs: Vital Signs Temp 98.4 F 11/19/23 06:57 Pulse 43 L 11/19/23 06:57 Resp 18 11/19/23 06:57 BP 112/66 11/19/23 06:57 Pulse Ox 95 11/19/23 06:57 FiO2 Intake & Output 11/18/23 11/19/23 11/19/23 18:59 06:59 18:59 Weight 80.739 kg Other: Voiding Method Toilet Toilet # Voids 3 2 - Exam General appearance: The patient is alert, oriented, appears in no acute d istress. HET: Head is normocephalic and atraumatic. Conjunctiva pink. Sclera anicteric. Neck: Supple without lymphadenopathy. Trachea midline. Heart: Regular. Lungs: Equal expansion, normal respiratory effort. Abdomen: Soft, nontender, nondistended with bowel sounds. No guarding or rigidity. Skin: No rashes. No jaundice. Extremities: Normal skin color and turgor. No pedal edema. Neurological: No focal deficits. Alert and oriented x3. - Labs CBC & Chem 7: 11/18/23 06:40 11/19/23 14:42 Labs: Abnormal Lab Results - Last 24 Hours (Table) 11/18/23 11/18/23 11/19/23 Range/Units 06:40 19:50 05:35 POC Glucose (mg/dL) 155 H 113 H (70-110) mg/dL CA 19-9 Antigen 96.9 H (0.0-34.9) U/mL Assessment and Plan Assessment: 1. Acute pancreatitis -Lipase was elevated at 2209; patient does take Ozempic which is placed on hold -- Patient has been made n.p.o.; has been placed on IV fluid hydration -- Symptomatic and supportive care with pain medications and antiemetics as needed -- MRCP is ordered 2. Elevated liver enzymes/jaundice -CT of the abdomen reveals ill-defined hazy soft tissue in tae hepatis with enlarged lymph nodes anterior to portal vein -He is the soft tissue near the duodenum and pancreatic head of uncertain etiology -- MRCP is ordered and pending; patient recommended transfer to tertiary care center if biliary obstruction is seen on MRCP -Avoid hepatotoxic medications 3. Possible acute cholecystitis -CT of the abdomen reveals wall thickening of the gallbladder suggesting possible gallstone; ill-defined hazy soft tissue and tae hepatis with enlarged lymph nodes anterior to portal vein -Patient is placed on IV Zosyn -- General surgery is consulted 4. Hypertension; lisinopril 20 mg nightly 5. Hyperlipidemia; Lipitor 40 mg p.o. nightly 6. Diabetes mellitus with long-term insulin use; will monitor Accu-Cheks before every meal and at bedtime with insulin sliding scale 7. Coronary artery disease; patient is status post CABG on 09/30/2023 DVT prophylaxis; SCDs CODE STATUS; full code
[2023-11-19 20:40] LABS: Glucose,Whole Blood 250 mg/dL (70-110)
[2023-11-19] MEDS: traMADol 50 MG TAB PO PRN (22:09)
[2023-11-20 06:14] LABS: Glucose,Whole Blood 107 mg/dL (70-110)
[2023-11-20 08:10] LABS: Basophils % (A) 1 %; Eosinophils # (A) 0.3 k/uL (0-0.7); Eosinophils % (A) 4 %; HCT 34.1 % (39.0-53.0); HGB 10.6 gm/dL (13.0-17.5); Hypochromasia Slight; Lymphocytes # (A) 1.1 k/uL (1.0-4.8); Lymphocytes % (A) 19 %; MCH 27.4 pg (25.0-35.0); MCV 88.3 fL (80.0-100.0); Mean Platelet Volume 8.1; Monocytes # (A) 0.4 k/uL (0-1.0); Monocytes % (A) 7 %; Neutrophils # (A) 3.9 k/uL (1.3-7.7); Neutrophils % (A) 68 %; Platelet Count 368 k/uL (150-450); RBC 3.87 m/uL (4.30-5.90); RDW 15.8 % (11.5-15.5); WBC 5.7 k/uL (3.8-10.6)
[2023-11-20 08:21] VITALS: BP 126/79; PULSE 75; RESP 20; TEMP 98.4
[2023-11-20 08:33] LABS: ALT 95 U/L (4-49); AST 53 U/L (17-59); African American GFR (CKD) >90 (>60 ml/min/1.73 sqM); Albumin 3.1 g/dL (3.5-5.0); Alkaline Phosphatase 230 U/L (38-126); Anion Gap 9 mmol/L; Bilirubin,Unconjugated 0.4 mg/dL (0.0-1.1); Blood Urea Nitrogen 12 mg/dL (9-20); Calcium 8.8 mg/dL (8.4-10.2); Carbon Dioxide 22 mmol/L (22-30); Chloride 108 mmol/L (98-107); Globulin 3.1 g/dL; Glucose 105 mg/dL (74-99); Non-African American GFR(CKD) >90 (>60 ml/min/1.73 sqM); Potassium 4.3 mmol/L (3.5-5.1); Sodium 139 mmol/L (137-145); Total Bilirubin 1.1 mg/dL (0.2-1.3); Total Protein 6.2 g/dL (6.3-8.2)
[2023-11-20 11:42] LABS: Glucose,Whole Blood 138 mg/dL (70-110)
[2023-11-20 12:23] LABS: Amylase 156 U/L (30-110); Lipase 1516 U/L (23-300)
--- NOTE | 2023-11-20 12:52 | P.PN ---
Subjective Progress Note Date: 11/20/23 Principal diagnosis: Elevated liver enzymes Patient underwent his MRCP over the weekend. No definite pancreatic pathology noted. No gallstones seen. No dilated biliary tree seen. Patient still feels well. Liver enzymes and pancreatic enzymes improving. He was apparently made n.p.o. for possible gallbladder surgery. Gallbladder on MRI again showed no gallstones but had a slightly thickened gallbladder wall. Objective - Vital Signs Vital signs: Vital Signs Temp 98.4 F 11/20/23 07:05 Pulse 75 11/20/23 07:05 Resp 20 11/20/23 07:05 BP 126/79 11/20/23 07:05 Pulse Ox 94 L 11/20/23 07:05 FiO2 Intake & Output 11/19/23 11/20/23 11/20/23 18:59 06:59 18:59 Other: Voiding Method Toilet Toilet # Voids 3 2 # Bowel Movements 1 - Exam Abdomen: Soft, nontender, nondistended - Labs CBC & Chem 7: 11/20/23 06:52 11/20/23 06:52 Labs: Abnormal Lab Results - Last 24 Hours (Table) 11/19/23 11/19/23 11/19/23 Range/Units 14:42 16:44 20:37 RBC (4.30-5.90) m/uL Hgb (13.0-17.5) gm/dL Hct (39.0-53.0) % RDW (11.5-15.5) % Chloride (98-107) mmol/L Glucose 188 H (74-99) mg/dL POC Glucose (mg/dL) 141 H 250 H (70-110) mg/dL Total Bilirubin 1.4 H (0.2-1.3) mg/dL AST 78 H (17-59) U/L ALT 122 H (4-49) U/L Alkaline Phosphatase 312 H (38-126) U/L Total Protein (6.3-8.2) g/dL Albumin (3.5-5.0) g/dL Amylase (30-110) U/L Lipase (23-300) U/L 11/20/23 11/20/23 11/20/23 Range/Units 06:52 06:52 06:52 RBC 3.87 L (4.30-5.90) m/uL Hgb 10.6 L (13.0-17.5) gm/dL Hct 34.1 L (39.0-53.0) % RDW 15.8 H (11.5-15.5) % Chloride 108 H (98-107) mmol/L Glucose 105 H (74-99) mg/dL POC Glucose (mg/dL) (70-110) mg/dL Total Bilirubin (0.2-1.3) mg/dL AST (17-59) U/L ALT 95 H (4-49) U/L Alkaline Phosphatase 230 H (38-126) U/L Total Protein 6.2 L (6.3-8.2) g/dL Albumin 3.1 L (3.5-5.0) g/dL Amylase 156 H (30-110) U/L Lipase 1516 H (23-300) U/L 11/20/23 Range/Units 11:40 RBC (4.30-5.90) m/uL Hgb (13.0-17.5) gm/dL Hct (39.0-53.0) % RDW (11.5-15.5) % Chloride (98-107) mmol/L Glucose (74-99) mg/dL POC Glucose (mg/dL) 138 H (70-110) mg/dL Total Bilirubin (0.2-1.3) mg/dL AST (17-59) U/L ALT (4-49) U/L Alkaline Phosphatase (38-126) U/L Total Protein (6.3-8.2) g/dL Albumin (3.5-5.0) g/dL Amylase (30-110) U/L Lipase (23-300) U/L Assessment and Plan (1) Pancreatitis Narrative/Plan: 68-year-old male with elevated liver enzymes and pancreatitis. CA 19-9 came back mildly elevated. Patient his family and I discussed his clinical scenario in detail. Still somewhat concerned regarding the possibility of CBD pathology possibly even neoplastic despite the recent MRI findings. Options reviewed. Favor endoscopic ultrasound to better evaluate the pancreatic head and distal common bile duct. Possible ERCP based on those findings. Endoscopic ultrasound also will provide information regarding possible microlithiasis of the gallbladder. We do not have that modality available to us here. Patient is otherwise doing well. He is quite anxious for discharge if nothing is being done actively. I think it is reasonable to offer outpatient referral for EUS. Low-fat diet initiated. If patient tolerates I would be comfortable with discharge. Informed the patient and family to return to the hospital in the e vent that he has any increased pain, dark urine, or jaundiceness. This was reviewed with the hospitalist as well. Current Visit: Yes Status: Acute Code(s): K85.90 - ACUTE PANCREATITIS WITHOUT NECROSIS OR INFECTION, UNSP SNOMED Code(s): 47364434
== END 2023-11-20 14:11 | disposition home or self-care (01) ==
LOC: EC 14:01 → 4SSUR 21:02 → INTOOBSV 21:02 → 4SSUR 21:56 → UNDODISIN 11-20 14:11
PROVIDERS: ADMIT Hospitalist; ATTEND Hospitalist
DX: K85.90 Acute pancreatitis without necrosis or infection, unspecified (principal); I49.3 Ventricular premature depolarization; E11.9 Type 2 diabetes mellitus without complications; R59.0 Localized enlarged lymph nodes; I25.10 Atherosclerotic heart disease of native coronary artery without angina pectoris; I10 Essential (primary) hypertension; E78.5 Hyperlipidemia, unspecified; R97.8 Other abnormal tumor markers; Z79.85 Long-term (current) use of injectable non-insulin antidiabetic drugs; Z79.02 Long term (current) use of antithrombotics/antiplatelets; Z79.4 Long term (current) use of insulin; Z79.84 Long term (current) use of oral hypoglycemic drugs; Z79.899 Other long term (current) drug therapy; Z95.1 Presence of aortocoronary bypass graft; Z87.442 Personal history of urinary calculi
CPT/HCPCS: 96361 ×3; 96365; 96366 ×3; 99285; 36415; 93005 ×2; 80053 ×2; 80048 ×2; 80076 ×2; 82150 ×2; 82248; 83605; 83690 ×3; 84484; 85025; 85027 ×2; 85610; 81003; 86301; 76705; 74177; 74183; G0378 ×4; J2543 ×4; A9585; Q9967